=== PATIENT | female | born 1940 | race Caucasian/White ===

== ENCOUNTER → 2017-11-15 12:02 | Outpatient (CLI) | payer MEDICARE, BC, SELFPAY ==
--- NOTE | 2017-11-15 | DI.ECHO.S_ITS ---
[facility] +---------+ : : [address] : [place] : : : : [id number] : : : : Phone: [phone]+ Echocardiogram Report + + :Name: DRE GAYTAN Study Date: 11/15/2017 Height: 61 in : :[facility] Weight: 130 lb : : Gender: Female BSA: 1.6 m2 : :: 1940 Age: 77 yrs BP: 148/82 mmHg: :Reason For Study: Palpitations : :Ordering Physician: Orestes : :Gume Casarez Performed By: Patricia Kent : + + Interpretation Summary 1) Normal left ventricular thickness, size, wall motion, and systolic function (EF 60-65%). 2) Normal right ventricular size and function. 3) No significant valvular abnormalities. 4) No prior Echo available for comparison. Procedure: A two-dimensional transthoracic echocardiogram with color flow and Doppler was performed. The study quality was technically good. There is no prior echocardiogram noted for this patient. The patient was in normal sinus rhythm during the exam. The patient had frequent PVCs during the exam. Left Ventricle: Proximal septal thickening is noted. The left ventricle is normal in size. There is normal left ventricular wall thickness. There is no ventricular septal defect visualized. The ejection fraction is estimated to be 60-65%. Left ventricular systolic function is normal. There are no focal wall motion abnormalities. Assessment of diastolic parameters indicates a relaxation abnormality of the left ventricle, consistent with normal filling pressures. Right Ventricle: The right ventricle is normal in size and function. Atria: Both atria are normal in size. Mitral Valve: There is a flat closure plane of the the mitral valve leaflets. The mitral valve leaflets appear borderline thickened, but open well. There is trace mitral regurgitation. Aortic Valve: The aortic valve is normal in structure and function. The aortic valve is mildly calcified. There is no aortic valve stenosis. No aortic regurgitation is present. Tricuspid Valve: The tricuspid valve leaflets are thin and pliable. There is mild tricuspid regurgitation. Pulmonic Valve: The pulmonic valve leaflets are thin and pliable; valve motion is normal. There is a trace or physiologic amount of pulmonic regurgitation. Great Vessels: The aortic root is normal size. The ascending aorta is normal in size. The aortic arch is normal in size. The IVC is of normal diameter and collapses greater than 50% with a sniff. This suggests a low right atrial pressure of 3 mm Hg. Pericardium/ Pleura There is no pericardial effusion. There is no pleural effusion. MMode/2D Measurements & Calculations LVIDd: 4.3 cm LVOT diam: 2.0 cm LVIDs: 2.2 cm Ao root diam: 3.8 cm FS: 49.7 % Aortic Jxn: 2.8 cm EPSS: 0.25 cm asc Aorta Diam: 3.4 cm IVSd: 0.77 cm Ao Arch Diam (Prox Trans): 2.7 cm LVPWd: 0.81 cm LV gong. diameter/BSA (cm/m^2): 2.8 LV sys. diameter/BSA (cm/m^2): 1.4 LA A2 area: 18.3 cm2 RA long axis: 4.3 cm LA A4 area: 14.0 cm2 RA area: 10.6 cm2 LA length (vol): 4.6 cm RA vol: 22.1 ml LA vol: 47.3 ml RA : 14.0 ml/m2 LA vol index: 30.1 ml/m2 IVC diam: 1.7 cm RVD1 (basal): 3.0 cm RVD2 (mid): 2.5 cm TAPSE: 2.7 cm Doppler Measurements & Calculations Ao V2 max: 146.5 cm/sec LVOT Max Emery: 84.1 cm/sec Ao V2 mean: 104.5 cm/sec LV V1 max P.8 mmHg Ao max P.6 mmHg LV V1 VTI: 16.7 cm Ao mean P.7 mmHg KIAN(I,D): 1.8 cm2 Ao V2 VTI: 29.5 cm KIAN(V,D): 1.8 cm2 sev ratio: 0.57 KIAN indexed to BSA (cm^2/m^2): 1.1 MV E max emery: 61.9 cm/sec TR max emery: 272.7 cm/sec MV A max emery: 92.7 cm/sec TR max P.8 mmHg MV E/A: 0.67 PA V2 max: 59.4 cm/sec Med Peak E' Emery: 5.1 cm/sec PA V2 mean: 45.5 cm/sec E/E' med: 12.2 PA mean P.89 mmHg Lat Peak E' Emery: 7.1 cm/sec PA Accel Time: 0.12 sec E/E' lat: 8.8 E/e' average: 10.5 MV dec time: 0.21 sec MV P1/2t: 62.2 msec MV P1/2t max emery: 62.0 cm/sec MVA(2t): 3.5 cm2 Reading Physician:02:39 PM
== END ==
PROVIDERS: Visit Provider Hospitalist
DX: I07.1 Rheumatic tricuspid insufficiency (principal); R00.2 Palpitations
CPT/HCPCS: 93306